=== PATIENT | female | born 1975 | race Caucasian/White ===

== ENCOUNTER → 2016-12-09 | Outpatient (CLI) | payer OTHER ==
--- NOTE | 2016-12-09 17:24 | DX ---
Hand Minimum, 3 Views Right History: Trauma, pain. Comparison: None. Findings: No acute fracture or dislocation identified. Fingers, metacarpals, and carpal bones demonst rate no definite fracture or dislocation. Distal radius and ulna appear intact. Specifically the firs t and second metacarpals demonstrate no definite fracture. Impression: 1. No definite acute fracture. 2. Recommend additional imaging if symptoms persist, if clinically indicated.
== END ==
LOC: BMCIMAGING 10:07
PROVIDERS: ATTEND Family Medicine
DX: M79.641 Pain in right hand (principal)

== ENCOUNTER → 2018-09-25 | Outpatient (CLI) | payer OTHER | LOC: FIMAGING 08:07 | PROVIDERS: ATTEND Advanced Practice Midwife | DX: O09.522 Supervision of elderly multigravida, second trimester (principal); Z3A.22 22 weeks gestation of pregnancy ==